=== PATIENT | male | born 1995 | race African-American/Black ===

== ENCOUNTER 2021-09-26 22:58 | Emergency (ER) | payer SELFPAY ==
[~2021-09-26] VITALS: Ht 188 cm; Wt 98.0 kg
[2021-09-26] MEDS ORDERED: TETANUS, DIPHTHERIA, PERTUSSIS VAC/PF 0.5ML (>10YR OLD) IM ONE (23:30)
[2021-09-26] MEDS ORDERED: HYDROCODONE/ACETAMINOPHEN 5/325MG TABLET PO ONE (23:30)
[2021-09-26] MEDS ORDERED: BACITRACIN ZINC OINT UDPKT TOP ONE (23:30)
[2021-09-26] MEDS ORDERED: LIDOCAINE HCL/EPINEPHRINE 1%-EPI 1:100,000 20 ML VIAL INFIL ONE (23:45)
[2021-09-27] MEDS ORDERED: AMOXICILLIN/POTASSIUM CLAVULANATE 875/125MG TAB PO ONE (00:45)
[2021-09-27] MEDS ORDERED: AMOX-424 MT (01:30)
[2021-09-27 02:19] VITALS: BP 136/57
== END 2021-09-27 02:27 | disposition home or self-care (01) ==
LOC: ER 22:58
DX: S71.152A Open bite, left thigh, initial encounter (principal); S31.154A Open bite of abdominal wall, left lower quadrant without penetration into peritoneal cavity, initial encounter; S40.212A Abrasion of left shoulder, initial encounter; W54.0XXA Bitten by dog, initial encounter; Y93.89 Activity, other specified; Y92.480 Sidewalk as the place of occurrence of the external cause; J45.909 Unspecified asthma, uncomplicated
CPT/HCPCS: 90471; 90715; 99284; J3490